=== PATIENT | female | born 1990 | race African-American/Black ===

== ENCOUNTER 2018-05-25 17:32 | Emergency (ER) | payer SELFPAY ==
[~2018-05-25] VITALS: Ht 157.5 cm; Wt 99.8 kg
[~2018-05-25 17:32] MED LIST: PREN1TAB26 PO
[2018-05-25 17:58] VITALS: BP 137/93
[2018-05-25] MEDS ORDERED: HYDR-3164 PO (18:43)
[2018-05-25] MEDS ORDERED: PENI500T PO (18:43)
[2018-05-25] MEDS ORDERED: IBUP-1007 PO (18:43)
--- NOTE | 2018-05-25 18:44 | PHYS DOC ---
Past Medical History Past Medical History: No Pertinent History Past Surgical History: No Surgical History Additional Information: /2 ppd Alcohol Use: Occasionally Drug Use: None Adult General Chief Complaint Chief Complaint: DENTAL PROBLEM HPI HPI Patient is a 28 year old female who presents with dental pain and facial swelling that started yesterday. Patient has a bottom right molar that is broken and her right lower face is swollen. She rates her pain a 10 out of 10. States this morning she took some aspirin. Patient states she does not have a dentist and her insurance does not start until June 13. Review of Systems Review of Systems Constitutional: Denies fever or chills [] Eyes: Denies change in visual acuity, redness, or eye pain [] HENT: Right lower dental pain and facial swelling. Denies nasal congestion or sore throat [] Respiratory: Denies cough or shortness of breath [] Cardiovascular: No additional information not addressed in HPI [] GI: Denies abdominal pain, nausea, vomiting, bloody stools or diarrhea [] : Denies dysuria or hematuria [] Musculoskeletal: Denies back pain or joint pain [] Integument: Denies rash or skin lesions [] Neurologic: Denies headache, focal weakness or sensory changes [] Endocrine: Denies polyuria or polydipsia [] All other systems were reviewed and found to be within normal limits, except as documented in this note. Current Medications Current Medications Current Medications Medications (Trade) Dose Ordered Sig/Jair Start Time Stop Time Status Last Admin Dose Admin Ibuprofen (Motrin) 600 mg 1X ONCE 05/25/18 18:45 05/25/18 18:46 DC 05/25/18 19:04 600 MG Allergies Allergies Allergies Coded Allergies Type Severity Reaction Last Updated Verified No Known Drug Allergies 05/17/13 No Physical Exam Physical Exam Constitutional: Well developed, well nourished, no acute distress, non-toxic appearance. [] HENT: Right lower broken molar, lower right gumline redness and swelling, right sided facial swelling. Normocephalic, atraumatic, bilateral external ears normal , oropharynx moist, no oral exudates, nose normal. [] Eyes: PERRLA, EOMI, conjunctiva normal, no discharge. [] Neck: Normal range of motion, no tenderness, supple, no stridor. [] Cardiovascular:Heart rate regular rhythm, no murmur [] Lungs & Thorax: Bilateral breath sounds clear to auscultation [] Abdomen: Bowel sounds normal, soft, no tenderness, no masses, no pulsatile masses. [] Skin: Warm, dry, no erythema, no rash. [] Back: No tenderness, no CVA tenderness. [] Extremities: No tenderness, no cyanosis, no clubbing, ROM intact, no edema. [] Neurologic: Alert and oriented X 3, normal motor function, normal sensory function, no focal deficits noted. [] Psychologic: Affect normal, judgement normal, mood normal. [] Current Patient Data Vital Signs Vital Signs Date Time Temp Pulse Resp B/P (MAP) Pulse Ox O2 Delivery O2 Flow Rate FiO2 05/25/18 17:58 99.0 86 16 137/93 (108) 95 Room Air 99.0 EKG EKG [] Radiology/Procedures Radiology/Procedures [] Course & Med Decision Making Course & Med Decision Making Patient is a 28 year old female who presents with dental pain and facial swelling that started yesterday. Patient has a bottom right molar that is broken and her right lower face is swollen. She rates her pain a 10 out of 10. States this morning she took some aspirin. Patient states she does not have a dentist and her insurance does not start until June 13. And oriented. Skin: Dry. Afebrile. Patient can move her mouth and eat but is painful. There is no inner oral abscess seen. Her face is 2-3+ edema on the right lower side. She does have a broken tooth on the right lower molar area. The gumline is tender and swollen. Patient is given a antibiotic and pain medication and a list of emergency dentist resources. [] Dragon Disclaimer Dragon Disclaimer This electronic medical record was generated, in whole or in part, using a voice recognition dictation system. Departure Departure Impression: Primary Impression: Dental abscess Disposition: 01 HOME, SELF-CARE Condition: STABLE Referrals: NO PCP (PCP) Patient Instructions: Dental Abscess Additional Instructions: FOLLOW UP WITH A DENTIST SOON YOU CAN. TAKE MEDICATIONS PRESCRIBED. Scripts Ibuprofen (IBUPROFEN) 600 Mg Tablet 600 MG PO PRN Q6HRS PRN for INFLAMMATION, #20 TAB Prov: HUAN SINGH [employer] 05/25/18 Hydrocodone/Apap 5-325 (NORCO 5-325 TABLET) 1 Each Tablet 1 TAB PO PRN Q6HRS PRN for PAIN, #15 TAB 0 Refills Prov: HUAN SINGH APRN 05/25/18 Penicillin V Potassium (PENICILLIN V POTASSIUM) 500 Mg Tablet 500 MG PO QID for 10 Days, #40 TAB 0 Refills Prov: HUAN SINGH APRN 05/25/18 HUAN SINGH APRN May 25, 2018 18:44
[2018-05-25] MEDS ORDERED: IBUPROFEN 600 MG TABLET. PO ONE (18:45)
== END 2018-05-25 19:05 | disposition home or self-care (01) ==
LOC: ER 17:32
DX: K04.7 Periapical abscess without sinus (principal); S02.5XXA Fracture of tooth (traumatic), initial encounter for closed fracture; F17.200 Nicotine dependence, unspecified, uncomplicated; X58.XXXA Exposure to other specified factors, initial encounter; Y93.89 Activity, other specified; Y92.89 Other specified places as the place of occurrence of the external cause; Y99.8 Other external cause status
CPT/HCPCS: 99283